=== PATIENT | female | born 1990 | race Caucasian/White ===

== ENCOUNTER 2018-01-07 12:02 | Emergency (ER) | payer BC, OTHER ==
[2018-01-07] MEDS ORDERED: HYDROmorphone 1 MG/ML Syringe IVPUSH PRN (12:37)
[2018-01-07] MEDS ORDERED: Lactated Ringers 1,000 ML IV SCH (12:45)
[2018-01-07] MEDS ORDERED: Piperacillin/Tazobactam 3.375 GM in Sodium Chloride 0.9% 50 ML IV ONE (12:45)
[2018-01-07 13:04] LABS: CHLORIDE,CL 99 mmol/L (98-107); SODIUM,NA 136 mmol/L (136-145)
--- NOTE | 2018-01-07 14:07 | PCM.CONS ---
H&P History of Present Illness - General Date of Service: 01/07/18 Source of Information: Patient History Limitations: Reports: No Limitations - History of Present Illness Initial Comments - Free Text/Narative: Patient is a 27 year old female who presented to an outside clinic with 4 days of lower abdominal pain. She had associated symptoms of subjective fever and chills. Pain is made worse with movement, urination and eating food. She had a CT performed that showed perforated appendicitis associated with a 6.3 x 4 cm abscess in the right pelvis. She presented to the ED and labs were drawn. Her WBC was 15K. She was given IV fluids and IV zosyn. RLQ Pain Score (Numeric/FACES): 5 - Related Data Allergies/Adverse Reactions: Allergies Allergy/AdvReac Type Severity Reaction Status Date / Time Sulfa (Sulfonamide Allergy Anaphylactic Verified 01/07/18 12:48 Antibiotics) Shock Home Medications: Home Meds . [No Known Home Meds] 01/07/18 [History] Past Medical History - Past Health History Medical/Surgical History: Denies Medical/Surgical History HEENT History: Reports: None Cardiovascular History: Reports: None Respiratory History: Reports: None Gastrointestinal History: Reports: None Genitourinary History: Reports: None DISPUTE COORDINATOR History: Reports: None Musculoskeletal History: Reports: None Neurological History: Reports: None Psychiatric History: Reports: None Endocrine/Metabolic History: Reports: None Hematologic History: Reports: None Immunologic History: Reports: None Oncologic (Cancer) History: Reports: None Dermatologic History: Reports: None - Infectious Disease History Infectious Disease History: Reports: Chicken Pox - Past Surgical History Head Surgeries/Procedures: Reports: None HEENT Surgical History: Reports: Tonsillectomy Cardiovascular Surgical History: Reports: None Respiratory Surgical History: Reports: None GI Surgical History: Reports: None Female Surgical History: Reports: None Endocrine Surgical History: Reports: None Neurological Surgical History: Reports: None Musculoskeletal Surgical History: Reports: None Oncologic Surgical History: Reports: None Dermatological Surgical History: Reports: None Social & Family History - Family History Family Medical History: Noncontributory - Tobacco Use Smoking Status *Q: Never Smoker Second Hand Smoke Exposure: No - Caffeine Use Caffeine Use: Reports: Coffee, Tea - Recreational Drug Use Recreational Drug Use: No H&P Review of Systems - Review of Systems: Review Of Systems: ROS reveals no pertinent complaints other than HPI. Exam - Exam Exam: See Below - Vital Signs Vital Signs: Last Vital Signs Temp 37.3 C 01/07/18 12:49 Pulse 64 01/07/18 12:49 Resp 18 01/07/18 12:49 BP 111/71 01/07/18 12:49 Pulse Ox 100 01/07/18 12:49 Weight: 51.256 kg - Exam General: Alert, Oriented HEENT: Conjunctiva Clear, Mucosa Moist & Whitney, Posterior Pharynx Clear Neck: Supple, Trachea Midline Lungs: Clear to Auscultation, Normal Respiratory Effort Cardiovascular: Regular Rate, Regular Rhythm GI/Abdominal Exam: No Distention, Guarding (RLQ), Rigid (RLQ), Rebound (RLQ), Tender (RLQ) Back Exam: Normal Inspection Extremities: Normal Inspection - Patient Data Lab Results Last 24 hrs: Laboratory Results - last 24 hr 01/07/18 01/07/18 01/07/18 Range/Units 12:30 12:30 12:30 WBC 15.04 H (4.0-11.0) K/uL RBC 3.66 L (4.30-5.90) M/uL Hgb 11.3 L (12.0-16.0) g/dL Hct 34.2 L (36.0-46.0) % MCV 93.4 (80.0-98.0) fL MCH 30.9 (27.0-32.0) pg MCHC 33.0 (31.0-37.0) g/dL RDW Std Deviation 43.9 (28.0-62.0) fl RDW Coeff of Stella 13 (11.0-15.0) % Plt Count 297 (150-400) K/uL MPV 9.90 (7.40-12.00) fL Neut % (Auto) 78.9 (48.0-80.0) % Lymph % (Auto) 11.2 L (16.0-40.0) % Towner % (Auto) 9.6 (0.0-15.0) % Eos % (Auto) 0.2 (0.0-7.0) % Baso % (Auto) 0.1 (0.0-1.5) % Neut # (Auto) 11.9 H (1.4-5.7) K/uL Lymph # (Auto) 1.7 (0.6-2.4) K/uL Towner # (Auto) 1.5 H (0.0-0.8) K/uL Eos # (Auto) 0.0 (0.0-0.7) K/uL Baso # (Auto) 0.0 (0.0-0.1) K/uL Nucleated RBC % 0.0 /100WBC Nucleated RBCs # 0 K/uL Sodium 136 (136-145) mmol/L Potassium 3.6 (3.5-5.1) mmol/L Chloride 99 (98-107) mmol/L Carbon Dioxide 28.7 (21.0-32.0) mmol/L BUN 5 L (7.0-18.0) mg/dL Creatinine 0.8 (0.6-1.0) mg/dL Est Cr Clr Drug Dosing TNP Estimated GFR (MDRD) > 60.0 ml/min Glucose 94 (74-106) mg/dL Calcium 8.7 (8.5-10.1) mg/dL Urine Color YELLOW Urine Appearance CLEAR Urine pH 7.0 (5.0-8.0) Ur Specific [place] <= 1.005 (1.001-1.035) Urine Protein NEGATIVE (NEGATIVE) mg/dL Urine Glucose (UA) NEGATIVE (NEGATIVE) mg/dL Urine Ketones NEGATIVE (NEGATIVE) mg/dL Urine Occult Blood LARGE H (NEGATIVE) Urine Nitrite NEGATIVE (NEGATIVE) Urine Bilirubin NEGATIVE (NEGATIVE) Urine Urobilinogen 0.2 (<2.0) EU/dL Ur Leukocyte Esterase NEGATIVE (NEGATIVE) Urine RBC 2-3 (0-2/HPF) Urine WBC 0-1 (0-5/HPF) Ur Epithelial Cells MODERATE (NONE-FEW) Urine Bacteria RARE (NEGATIVE) Result Diagrams: 01/07/18 12:30 01/07/18 12:30 Consult PN Assessment/Plan Procedures: Procedures ASSAY OF PROGESTERONE (05/12/16) ASSAY THYROID STIM HORMONE (02/05/16) ROUTINE VENIPUNCTURE (05/12/16) TRANSVAGINAL US NON-OB (02/06/16) (1) Ruptured suppurative appendicitis SNOMED Code(s): 91069085 Code(s): K35.2 - ACUTE APPENDICITIS WITH GENERALIZED PERITONITIS Current Visit: Yes (2) Intra-abdominal abscess SNOMED Code(s): 17993910 Code(s): K65.1 - PERITONEAL ABSCESS Current Visit: Yes Problem List Initiated/Reviewed/Updated: Yes My Orders Last 24 Hours: My Active Orders 01/07/18 12:30 UA W/MICROSCOPIC [URIN] Stat 01/07/18 12:37 HYDROmorphone [Dilaudid] 0.5 mg IVPUSH Q1H PRN 01/07/18 12:45 Lactated Ringers [Ringers, Lactated] 1,000 ml IV ASDIRECTED Plan: We discussed the pathophysiology of appendicitis. This has ruptured and is associated with a large abscess. We do not have interventional radiology available and I feel she would do better with percutaneous drain placement and IV antibiotics with possible interval appendectomy 6-8 weeks later. The operative field will be very inflamed which increases the risk of operative complications. I called [facility] in [place] and the surgeon fashion director party plan sales has accepted her.
== END 2018-01-07 14:20 ==
LOC: MW.ED 12:02
DX: K35.2 Acute appendicitis with generalized peritonitis (principal); K65.1 Peritoneal abscess; Z88.2 Allergy status to sulfonamides
CPT/HCPCS: 36415; 80048; 81001; 85025; 96361; 96365; 96375; 99285; J1170; J2543; J7050; J7120

== ENCOUNTER 2021-01-14 13:49 | Inpatient (IN) | payer BC ==
[2021-01-14] MEDS ORDERED: Tranexamic Acid 1,000 MG in Sodium Chloride 0.9% 100 ML IV PRN (15:12)
[2021-01-14] MEDS ORDERED: Sodium Chloride 0.9% 2.5 ML Syringe FLUSH PRN (15:12)
[2021-01-14] MEDS ORDERED: Methylergonovine 0.2 MG/1 ML Amp IM PRN (15:12)
[2021-01-14] MEDS ORDERED: Water For Irrigation,Sterile 1,000 ML Container IRR PRN (15:12)
[2021-01-14] MEDS ORDERED: Sodium Chloride 0.9% 10 ML Syringe FLUSH PRN (15:12)
[2021-01-14] MEDS ORDERED: Misoprostol 200 MCG Tab PO PRN (15:12)
[2021-01-14] MEDS ORDERED: Nalbuphine 10 MG/1 ML Vial IVPUSH PRN (15:12)
[2021-01-14] MEDS ORDERED: Lidocaine 1% 50 ML MDV INJECT PRN (15:12)
[2021-01-14] MEDS ORDERED: Ampicillin 2 GM in Sodium Chloride 0.9% 100 ML IV ONE (15:12)
[2021-01-14] MEDS ORDERED: Carboprost Tromethamine 250 MCG/1 ML Amp IM PRN (15:12)
[2021-01-14] MEDS ORDERED: Sodium Chloride 0.9% 10 ML SDV IV PRN (15:12)
[2021-01-14] MEDS ORDERED: Ondansetron 4 MG/2 ML SDV IVPUSH PRN (15:12)
[2021-01-14] MEDS ORDERED: Oxytocin/0.9 % Sodium Chloride 30 UNIT/500 ML BAG IV SCH (15:15)
[2021-01-14] MEDS ORDERED: Lactated Ringers 1,000 ML IV SCH (15:15)
--- NOTE | 2021-01-14 16:19 | PCM.LDHP ---
L&D History of Present Illness - General Date of Service: 01/14/21 Admit Problem/Dx: Patient Status Order with Admit Dx/Problem 01/14/21 15:12 Patient Status [ADT] Routine Admission Diagnosis/Problem Admission Diagnosis/Problem 01/14/21 16:15 presenting to L&D with reports of SROM at approximately 1300. Reports contractions started earlier this AM. A+, Rubella immune, GBS+. Upon presentat ion, patient was vertex, 6cm/100%/-1. Source of Information: Patient History Limitations: Reports: No Limitations - Related Data Allergies/Adverse Reactions: Allergies Allergy/AdvReac Type Severity Reaction Status Date / Time Sulfa (Sulfonamide Allergy Anaphylactic Verified 01/07/18 12:48 Antibiotics) Shock Home Medications: Home Meds . [No Known Home Meds] 01/07/18 [History] Past Medical History - Past Health History Medical/Surgical History: Denies Medical/Surgical History HEENT History: Reports: None Cardiovascular History: Reports: None Respiratory History: Reports: None Gastrointestinal History: Reports: None Genitourinary History: Reports: None CAREER RESOURCE TECHNICIAN History: Reports: None Musculoskeletal History: Reports: None Neurological History: Reports: None Psychiatric History: Reports: None Endocrine/Metabolic History: Reports: None Hematologic History: Reports: None Immunologic History: Reports: None Oncologic (Cancer) History: Reports: None Dermatologic History: Reports: None - Infectious Disease History Infectious Disease History: Reports: Chicken Pox - Past Surgical History Head Surgeries/Procedures: Reports: None HEENT Surgical History: Reports: Tonsillectomy Cardiovascular Surgical History: Reports: None Respiratory Surgical History: Reports: None GI Surgical History: Reports: None Female Surgical History: Reports: None Endocrine Surgical History: Reports: None Neurological Surgical History: Reports: None Musculoskeletal Surgical History: Reports: None Oncologic Surgical History: Reports: None Dermatological Surgical History: Reports: None Social & Family History - Family History Family Medical History: No Pertinent Family History - Caffeine Use Caffeine Use: Reports: Coffee, Tea H&P Review of Systems - Review of Systems: Review Of Systems: See Below General: Reports: No Symptoms HEENT: Reports: No Symptoms Pulmonary: Reports: No Symptoms Cardiovascular: Reports: No Symptoms Gastrointestinal: Reports: No Symptoms Genitourinary: Reports: No Symptoms Musculoskeletal: Reports: No Symptoms Skin: Reports: No Symptoms Psychiatric: Reports: No Symptoms Neurological: Reports: No Symptoms Hematologic/Lymphatic: Reports: No Symptoms Immunologic: Reports: No Symptoms L&D Exam - Exam Exam: See Below - Vital Signs Weight: 167 lb - OB Specific Contraction Intensity: Moderate to Strong Movement: Active Heart Tones: Present Heart Rate (FHR) Variability: Moderate (6-25 bmp) Presentation: Vertex - Johnson Score Johnson Score Cervix Position: Midposition Johnson Score Consistency: Soft Johnson Score Effacement: >80% Johnson Score Dilation: > 5 cm Johnson Score Infant's Station: -1 ,0 Johnson Score Total: 11 - Exam General: Alert, Oriented, Cooperative, Mild Distress Lungs: Normal Respiratory Effort Cardiovascular: Regular Rate, Regular Rhythm GI/Abdominal Exam: Soft, Non-Tender Rectal Exam: Deferred Genitourinary: Deferred Back Exam: Normal Inspection, Full Range of Motion Extremities: Normal Inspection, Normal Range of Motion, Non-Tender, Normal Capillary Refill Skin: Warm, Dry, Intact Neurological: Strength Equal Bilateral, Normal Gait, Normal Speech, Normal Tone, Sensation Intact Psychiatric: Alert, Normal Affect, Normal Mood - Patient Data Lab Results Last 24 hrs: Laboratory Results - last 24 hr 01/14/21 Range/Units 14:45 SARS-CoV-2 RNA (JULIETA) NEGATIVE (NEGATIVE) - Problem List (1) Supervision of normal IUP (intrauterine ) in multigravida SNOMED Code(s): 462687333, 971005189, 731665416 ICD Code: Z34.80 - ENCOUNTER FOR SUPRVSN OF NORMAL , UNSP TRIMESTER Status: Acute Priority: High Current Visit: Yes Qualifiers: Trimester: third trimester Qualified Code(s): Z34.83 - Encounter for s upervision of other normal , third trimester Problem List Initiated/Reviewed/Updated: Yes Orders Last 24hrs: Active Orders 24 hr Category Date Time Status Patient Status [ADT] Routine ADT 01/14/21 15:12 Active Heart Tones [RC] CONTINUOUS Care 01/14/21 15:12 Active Non Stress Test [RC] PER UNIT ROUTINE Care 01/14/21 15:12 Active May Shower [RC] ASDIRECTED Care 01/14/21 15:12 Active Notify Provider [RC] PRN Care 01/14/21 15:12 Active Up ad Devora [RC] ASDIRECTED Care 01/14/21 15:12 Active Vaginal Exam [RC] PRN Care 01/14/21 15:12 Active Vital Signs [RC] PER UNIT ROUTINE Care 01/14/21 15:12 Active CBC W/O DIFF,HEMOGRAM [HEME] Routine Lab 01/14/21 15:12 Ordered RPR (SYPHILIS SERO) W/ RFLX [REF] Routine Lab 01/14/21 15:12 Ordered TYPE AND SCREEN [BBK] Routine Lab 01/14/21 15:12 Ordered Ampicillin 1 gm Med 01/14/21 19:15 Active Sodium Chloride 0.9% [Normal Saline] 50 ml IV Q4H Carboprost Tromethamine [Hemabate DS] Med 01/14/21 15:12 Active 250 mcg IM ASDIRECTED PRN Lactated Ringers [Ringers, Lactated] 1,000 ml Med 01/14/21 15:15 Active IV ASDIRECTED Lidocaine 1% [Xylocaine 1%] Med 01/14/21 15:12 Active 50 ml INJECT ONETIME PRN Methylergonovine [Methergine] Med 01/14/21 15:12 Active 0.2 mg IM ASDIRECTED PRN Nalbuphine [Nubain] Med 01/14/21 15:12 Active 10 mg IVPUSH Q1H PRN Ondansetron [Zofran] Med 01/14/21 15:12 Active 4 mg IVPUSH Q6H PRN Oxytocin/0.9 % Sodium Chloride [Oxytocin 30 Unit/500 ML Med 01/14/21 15:15 Active -NS] 30 unit in 500 ml IV TITRATE Sodium Chloride 0.9% [Normal Saline] Med 01/14/21 15:12 Active 10 ml IV ASDIRECTED PRN Sodium Chloride 0.9% [Saline Flush] Med 01/14/21 15:12 Active 10 ml FLUSH ASDIRECTED PRN Sodium Chloride 0.9% [Saline Flush] Med 01/14/21 15:12 Active 2.5 ml FLUSH ASDIRECTED PRN Tranexamic Acid [Cyklokapron] 1,000 mg Med 01/14/21 15:12 Active Sodium Chloride 0.9% [Normal Saline] 100 ml IV ONETIME Water For Irrigation,Sterile [Sterile Water for Med 01/14/21 15:12 Active Irrigation] 1,000 ml IRR ASDIRECTED PRN miSOPROStoL [Cytotec] Med 01/14/21 15:12 Active 200 mcg PO ONETIME PRN Scalp Electrode [WOMSER] Per Unit Routine Oth 01/14/21 15:12 Ordered Peripheral IV Insertion Adult [OM.PC] Routine Oth 01/14/21 15:12 Ordered Resuscitation Status Routine Resus Stat 01/14/21 15:12 Ordered Medication Orders Carboprost Tromethamine (Carboprost Tromethamine 250 Mcg/1 Ml Amp) 250 mcg IM ASDIRECTED PRN PRN Reason: Post Hemorrhage Lactated Ringer's (Ringers, Lactated) 1,000 mls @ 150 mls/hr IV ASDIRECTED MIGUEL ANGEL Oxytocin/Sodium Chloride (Oxytocin 30 Unit/500 Ml-Ns) 30 unit in 500 mls @ 999 mls/hr IV TITRATE MIGUEL ANGEL Tranexamic Acid 1,000 mg/ (Sodium Chloride) 110 mls @ 660 mls/hr IV ONETIME PRN PRN Reason: Bleeding Ampicillin Sodium 1 gm/ Sodium (Chloride) 50 mls @ 100 mls/hr IV Q4H MIGUEL ANGEL Lidocaine HCl (Lidocaine 1% 50 Ml Mdv) 50 ml INJECT ONETIME PRN PRN Reason: Laceration repair Methylergonovine Maleate (Methylergonovine 0.2 Mg/1 Ml Amp) 0.2 mg IM ASDIRECTED PRN PRN Reason: Post Hemorrhage Misoprostol (Misoprostol 200 Mcg Tab) 200 mcg PO ONETIME PRN PRN Reason: Post Hemorrhage Nalbuphine HCl (Nalbuphine 10 Mg/1 Ml Vial) 10 mg IVPUSH Q1H PRN PRN Reason: Pain (severe 7-10) Ondansetron HCl (Ondansetron 4 Mg/2 Ml Sdv) 4 mg IVPUSH Q6H PRN PRN Reason: Nausea/Vomiting Sodium Chloride (Sodium Chloride 0.9% 10 Ml Syringe) 10 ml FLUSH ASDIRECTED PRN PRN Reason: Keep Vein Open Sodium Chloride (Sodium Chloride 0.9% 2.5 Ml Syringe) 2.5 ml FLUSH ASDIRECTED PRN PRN Reason: Keep Vein Open Sodium Chloride (Sodium Chloride 0.9% 10 Ml Sdv) 10 ml IV ASDIRECTED PRN PRN Reason: IV Use Sterile Water (Water For Irrigation,Sterile 1,000 Ml Container) 1,000 ml IRR ASDIRECTED PRN PRN Reason: delivery Assessment/Plan Comment:: Admit A: presenting to L&D with reports of SROM at approximately 1300. Reports contractions started earlier this AM. A+, Rubella immune, GBS+. Upon presentation, patient was vertex, 6cm/100%/-1. P: Anticipate ; Dr. Melchor updated.
[2021-01-14] MEDS ORDERED: oxyCODONE 5 MG Tab PO PRN (16:20)
[2021-01-14] MEDS ORDERED: Docusate Sodium 100 MG Cap PO PRN (16:20)
[2021-01-14] MEDS ORDERED: Bisacodyl 10 MG Supp RECTAL PRN (16:20)
[2021-01-14] MEDS ORDERED: Benzocaine/Menthol 20%-0.5% Spray 78 GM Cannister TOP PRN (16:20)
[2021-01-14] MEDS ORDERED: Ibuprofen 400 MG Tab PO PRN (16:20)
[2021-01-14] MEDS ORDERED: Ibuprofen 800 MG Tab PO PRN (16:20)
[2021-01-14] MEDS ORDERED: Acetaminophen 500 MG Tab PO PRN ×2 (16:20)
[2021-01-14] MEDS ORDERED: Witch Hazel Medicated Pads 40/Jar TOP PRN (16:20)
[2021-01-14] MEDS ORDERED: Lanolin 100% Cream 7 GM Tube TOP PRN (16:20)
--- NOTE | 2021-01-14 16:34 | PCM.DEL ---
L & D Note - General Info Date of Service: 01/14/21 Mother's Due Date: 01/13/21 - Delivery Note Labor: Spontaneous Delivery Outcome: Livebirth Infant Delivery Method: Spontaneous Vaginal Delivery-Single Presentation: Vertex Nuchal Cord: None Anesthesia Type: None Laceration: None Placenta: Intact, Spontaneous Cord: 3 Vessels Estimated Blood Loss: 250 Score 1 min: 8 Score 5 min: 9 Second Stage Interventions: Reports: Encouragement Given, Pushing Effectively, Pushing, Knee Chest Position Delivery Comments (Free Text/Narrative):: viable male; pushing [id number] position; head delivered with good pushing; shoulders and body followed easily after; no nuchal. Baby passed between mother's legs and immediately [id number] as she held him against her abdomen and we turned her onto her back. APGARs 8/9; weight pending. Expectant management desired by patient. Cord doubly clamped after cessation of pulsing; cut by patient as was en route to hospital. Baby to breast to attempt . Placenta delivered grossly intact; arredondo; 3VC. EBL 250 mL. Perineum intact. Bleeding scant; fundus firm and midline. Mom and baby left in stable condition with nurse at bedside for assessment. - General Info Date of Service: 01/14/21 Admission Dx/Problem (Free Text): Patient Status Order with Admit Dx/Problem 01/14/21 15:12 Patient Status [ADT] Routine Admission Diagnosis/Problem Admission Diagnosis/Problem 01/14/21 16:15 presenting to L&D with reports of SROM at approximately 1300. Reports contractions started earlier this AM. A+, Rubella immune, GBS+. Upon presentation, patient was vertex, 6cm/100%/-1. Functional Status: Reports: Pain Controlled - Review of Systems General: Reports: No Symptoms HEENT: Reports: No Symptoms Pulmonary: Reports: No Symptoms Cardiovascular: Reports: No Symptoms Gastrointestinal: Reports: No Symptoms Genitourinary: Reports: No Symptoms Musculoskeletal: Reports: No Symptoms Skin: Reports: No Symptoms Neurological: Reports: No Symptoms Psychiatric: Reports: No Symptoms - Patient Data Weight - Most Recent: 167 lb Lab Results Last 24 Hours: Laboratory Results - last 24 hr 01/14/21 Range/Units 14:45 SARS-CoV-2 RNA (JULIETA) NEGATIVE (NEGATIVE) Med Orders - Current: Current Medications Discontinued Medications Carboprost Tromethamine (Carboprost Tromethamine 250 Mcg/1 Ml Amp) 250 mcg IM ASDIRECTED PRN PRN Reason: Post Hemorrhage Lactated Ringer's (Ringers, Lactated) 1,000 mls @ 150 mls/hr IV ASDIRECTED MIGUEL ANGEL Oxytocin/Sodium Chloride (Oxytocin 30 Unit/500 Ml-Ns) 30 unit in 500 mls @ 999 mls/hr IV TITRATE [facility] Tranexamic Acid 1,000 mg/ (Sodium Chloride) 110 mls @ 660 mls/hr IV ONETIME PRN PRN Reason: Bleeding Ampicillin Sodium 2 gm/ Sodium (Chloride) 100 mls @ 200 mls/hr IV ONETIME ONE Stop: 01/14/21 15:41 Ampicillin Sodium 1 gm/ Sodium (Chloride) 50 mls @ 100 mls/hr IV Q4H [facility] Lidocaine HCl (Lidocaine 1% 50 Ml Mdv) 50 ml INJECT ONETIME PRN PRN Reason: Laceration repair Methylergonovine Maleate (Methylergonovine 0.2 Mg/1 Ml Amp) 0.2 mg IM ASDIRECTED PRN PRN Reason: Post Hemorrhage Misoprostol (Misoprostol 200 Mcg Tab) 200 mcg PO ONETIME PRN PRN Reason: Post Hemorrhage Nalbuphine HCl (Nalbuphine 10 Mg/1 Ml Vial) 10 mg IVPUSH Q1H PRN PRN Reason: Pain (severe 7-10) Ondansetron HCl (Ondansetron 4 Mg/2 Ml Sdv) 4 mg IVPUSH Q6H PRN PRN Reason: Nausea/Vomiting Sodium Chloride (Sodium Chloride 0.9% 10 Ml Syringe) 10 ml FLUSH ASDIRECTED PRN PRN Reason: Keep Vein Open Sodium Chloride (Sodium Chloride 0.9% 2.5 Ml Syringe) 2.5 ml FLUSH ASDIRECTED PRN PRN Reason: Keep Vein Open Sodium Chloride (Sodium Chloride 0.9% 10 Ml Sdv) 10 ml IV ASDIRECTED PRN PRN Reason: IV Use Sterile Water (Water For Irrigation,Sterile 1,000 Ml Container) 1,000 ml IRR ASDIRECTED PRN PRN Reason: delivery - Exam General: Alert, Oriented, Cooperative, No Acute Distress Lungs: Normal Respiratory Effort Cardiovascular: Regular Rate, Regular Rhythm GI/Abdominal Exam: Soft, Non-Tender (Female) Exam: Normal External Exam Back Exam: Normal Inspection, Full Range of Motion Extremities: Normal Inspection, Normal Range of Motion, Non-Tender, Normal Ca pillary Refill Skin: Warm, Dry, Intact Neurological: No New Focal Deficit, Normal Speech, Normal Tone, Strength Equal Bilateral, Sensation Intact Psy/Mental Status: Alert, Normal Affect, Normal Mood - Problem List & Annotations (1) Supervision of normal IUP (intrauterine ) in multigravida SNOMED Code(s): 797227107, 067663119, 786509410 Code(s): Z34.80 - ENCOUNTER FOR SUPRVSN OF NORMAL , UNSP TRIMESTER Status: Acute Priority: High Current Visit: Yes Qualifiers: Trimester: third trimester Qualified Code(s): Z34.83 - Encounter for supervision of other normal , third trimester (2) (spontaneous vaginal delivery) SNOMED Code(s): 096335640 Code(s): O80 - ENCOUNTER FOR FULL-TERM UNCOMPLICATED DELIVERY Status: Acute Priority: High Current Visit: Yes - Problem List Review Problem List Initiated/Reviewed/Updated: Yes - My Orders Last 24 Hours: My Active Orders 01/14/21 Lunch Regular Diet [DIET] 01/14/21 16:20 Patient Status [ADT] Routine May Shower [RC] ASDIRECTED Up ad Devora [RC] ASDIRECTED Vital Signs [RC] PER UNIT ROUTINE Acetaminophen [Tylenol Extra Strength] 1,000 mg PO Q4H PRN Acetaminophen [Tylenol Extra Strength] 500 mg PO Q4H PRN Benzocaine/Menthol [Dermoplast Pain Relief 20%-0.5% Kinta] 78 gm TOP ASDIRECTED PRN Docusate Sodium [Colace] 100 mg PO Q12H PRN Ibuprofen [Motrin] 400 mg PO Q4H PRN Ibuprofen [Motrin] 800 mg PO Q6H PRN Lanolin [Lansinoh HPA] See Dose Instructions TOP ASDIRECTED PRN bisacodyL [Dulcolax] 10 mg RECTAL ONETIME PRN oxyCODONE 5 mg PO Q2H PRN witch Magaly [Tucks] 1 pad TOP ASDIRECTED PRN Assess Lochia [WOMSER] Per Unit Routine Assess Uterine Involution [WOMSER] Per Unit Routine Peripheral IV Discontinue [OM.PC] Routine Resuscitation Status Routine 01/15/21 05:11 HEMOGLOBIN/HEMATOCRIT,HH [HEME] Timed - Plan Plan:: Admit A: presenting to L&D with reports of SROM at approximately 1300. Reports contractions started earlier this AM. A+, Rubella immune, GBS+. Upon presentation, patient was vertex, 6cm/100%/-1. P: Anticipate ; Dr. Melchor updated. Delivery A: viable male; pushing [id number] position; head delivered with good pushing; shoulders and body followed easily after; no nuchal. Baby passed between mother's legs and immediately [id number] as she held him against her abdomen and we turned her onto her back. APGARs 8/9; weight pending. Expectant management desired by patient. Cord doubly clamped after cessation of pulsing; cut by patient as was en route to hospital. Baby to breast to attempt . Placenta delivered grossly intact; arredondo; 3VC. EBL 250 mL. Perineum intact. Bleeding scant; fundus firm and midline. Mom and baby left in stable condition with nurse at bedside for assessment. P: Routine plan of care. Anticipate 48 stay due to declining GBS prophylaxis in labor. Dr. Melchor updated.
[2021-01-14] MEDS ORDERED: Ampicillin 1 GM in Sodium Chloride 0.9% 50 ML IV SCH (19:15)
== END 2021-01-15 19:04 | disposition left against medical advice (07) | DRG 560 ==
LOC: MW.OBCHECK 13:49 → MW.OB 13:50 → MW.OBCHECK 15:40 → OBSVTOIN 15:41 → MW.OB 19:30
PROVIDERS: ADMIT Obstetrics & Gynecology; ATTEND Obstetrics & Gynecology
PROC: 10E0XZZ Delivery of Products of Conception, External Approach (ICD-10-PCS; principal; 2021-01-14)
DX: O99.824 Streptococcus B carrier state complicating childbirth (principal); Z3A.40 40 weeks gestation of pregnancy; Z37.0 Single live birth; O48.0 Post-term pregnancy; Z20.822 Contact with and (suspected) exposure to COVID-19
CPT/HCPCS: 36415; 59025; 59409; 85014; 85018; U0002